=== PATIENT | female | born 1995 | race Two or more races ===

== ENCOUNTER 2016-04-18 23:34 | Emergency (ER) | payer OTHER ==
[2016-04-18 22:31] LABS: URINE SOURCE CLEAN CATCH
[2016-04-18 22:36] LABS: URINE APPEARANCE CLOUDY; URINE BILIRUBIN NEG (NEG); URINE BLOOD NEG (NEG); URINE COLOR YELLOW; URINE GLUCOSE NEG (NEG); URINE KETONE NEG (NEG); URINE LEUKOCYTE ESTERASE 2+ (NEG); URINE NITRATE NEG (NEG); URINE PH 5.5 (5-8); URINE PROTEIN NEG (NEG); URINE UROBILINOGEN 0.2 MG/DL (NEG)
[2016-04-18 22:38] LABS: CULTURE INDICATED? YES; URINE BACTERIA AUWI NEG (NEGATIVE); URINE SQUAMOUS EPITHELIAL CELL MOD /[HPF]
[2016-04-18 22:46] LABS: U HYALINE CASTS AUWI 0-2 /[LPF]; URINE MUCUS PRESENT; URINE YEAST PRESENT
[2016-04-21 13:07] LABS: CHLAMYDIA TRACH Not Detected (Not Detected); N GONOR Not Detected (Not Detected)
== END 2016-04-18 23:45 | disposition home or self-care (01) ==
LOC: CFTX 23:34
PROVIDERS: Student in an Organized Health Care Education/Training Program
DX: B37.3 Candidiasis of vulva and vagina (principal)
CPT/HCPCS: 81003; 87086; 87088; 87186; 87491; 87591; 87808; 87905; 99284